=== PATIENT | male | born 1960 | race African-American/Black ===

== ENCOUNTER 2017-03-26 17:40 | Emergency (ER) | payer OTHER ==
[~2017-03-26] VITALS: Ht 175.3 cm; Wt 88.9 kg
[~2017-03-26 17:40] MED LIST: FLEXERIL10 M1 PO; KETOPROFEN PO; NAPROSYN500 MG PO; PREDNISONE PO; VIBRAMYCIN100 M1 PO
== END 2017-03-26 20:00 | disposition home or self-care (01) ==
LOC: CED 17:40
DX: S61.211A Laceration without foreign body of left index finger without damage to nail, initial encounter (principal); I10 Essential (primary) hypertension; E78.00 Pure hypercholesterolemia, unspecified; M19.90 Unspecified osteoarthritis, unspecified site; W26.8XXA Contact with other sharp object(s), not elsewhere classified, initial encounter
CPT/HCPCS: 12002; 99283